=== PATIENT | female | born 1975 | race Two or more races ===

== ENCOUNTER 2024-04-05 11:27 | Emergency (ER) | payer MEDICAID, OTHER ==
[~2024-04-05] VITALS: Ht 162.6 cm; Wt 89.0 kg
[2024-04-05 12:26] VITALS: BP 137/78; PULSE 96; RESP 18; TEMP 97.7; O2SAT 96
[2024-04-05] MEDS: HYDROcodone-ACET 10/325MG TAB PO ONE (12:49)
[2024-04-05] MEDS ORDERED: HYDR-4798 PO (13:46)
[2024-04-05] MEDS ORDERED: METH-1182 PO (13:48)
== END 2024-04-05 13:55 | disposition home or self-care (01) ==
LOC: EDUNIT# 11:27 → EDBD 11:27 → ER 11:27
DX: S16.1XXA Strain of muscle, fascia and tendon at neck level, initial encounter (principal); S39.012A Strain of muscle, fascia and tendon of lower back, initial encounter; V49.9XXA Car occupant (driver) (passenger) injured in unspecified traffic accident, initial encounter; Y93.89 Activity, other specified; Y92.89 Other specified places as the place of occurrence of the external cause; Y99.8 Other external cause status
CPT/HCPCS: 72040; 72100